=== PATIENT | male | born 1985 | race Hispanic/Latino ===

== ENCOUNTER 2017-08-22 08:26 | Emergency (ER) | payer SELFPAY ==
[2017-08-22] MEDS ORDERED: HYDROcodone/Acetaminophen 10/325 mg Tablet ONE (09:01)
[2017-08-22] MEDS ORDERED: Lidocaine 1% w/Epinephrine 1:100K 20 ML VIAL ONE (09:02)
== END 2017-08-22 09:48 | disposition home or self-care (01) ==
LOC: ERS 08:26
DX: L02.31 Cutaneous abscess of buttock (principal); F17.210 Nicotine dependence, cigarettes, uncomplicated
CPT/HCPCS: 10060; J2001

== ENCOUNTER 2017-08-23 18:55 | Emergency (ER) | payer SELFPAY ==
[2017-08-23] MEDS ORDERED: Bacitracin Zinc 1 Packet ONE (19:50)
== END 2017-08-23 20:27 | disposition home or self-care (01) ==
LOC: ERS 18:55
DX: L03.317 Cellulitis of buttock (principal); F17.210 Nicotine dependence, cigarettes, uncomplicated
CPT/HCPCS: 99282

== ENCOUNTER 2021-04-14 17:25 | Emergency (ER) | payer SELFPAY ==
[2021-04-15 15:40] LABS: SARS-CoV-2 PCR by NAA DETECTED (NotDetected)
== END 2021-04-14 18:45 | disposition home or self-care (01) ==
LOC: ERS 17:25
DX: U07.1 COVID-19 (principal); H91.91 Unspecified hearing loss, right ear; F17.210 Nicotine dependence, cigarettes, uncomplicated
CPT/HCPCS: 99283; U0003; U0005